=== PATIENT | male | born 1990 | race Two or more races ===

== ENCOUNTER 2019-04-04 00:28 | Emergency (ER) | payer OTHER ==
[~2019-04-04] VITALS: Ht 180.3 cm; Wt 117.9 kg
--- NOTE | 2019-04-04 00:39 | PHYS DOC ---
Adult General Chief Complaint Chief Complaint: LACERATION/AVULSION HPI HPI 29-year-old male presents to the emergency department after a fall. Patient states he was coming up couple steps in his house subsequently tripped his hand went through glass. He has lacerations appreciated to the posterior aspect of his hand. Patient states he has had a few beers. She denies any head injury, loss of consciousness, no blood thinning medications. Nothing he symptoms worse, nothing makes his symptoms better All other ROS negative unless documented in HPI Review of Systems Review of Systems See Above Current Medications Current Medications Current Medications Medications (Trade) Dose Ordered Sig/Jd Start Time Stop Time Status Last Admin Dose Admin Diphenhydramine HCl (Benadryl) 25 mg 1X ONCE 04/04/19 01:15 04/04/19 01:16 Cancel Lidocaine HCl (Lidocaine 1% 20ml Vial) 20 ml 1X ONCE 04/04/19 01:00 04/04/19 01:01 DC 04/04/19 01:00 20 ML Allergies Allergies Allergies Coded Allergies Type Severity Reaction Last Updated Verified No Known Drug Allergies 04/04/19 No Physical Exam Physical Exam See Above Constitutional: Well developed, well nourished, no acute distress, non-toxic appearance. [] Cardiovascular:Heart rate regular rhythm, no murmur [] Lungs & Thorax: Bilateral breath sounds clear to auscultation [] Abdomen: Bowel sounds normal, soft, no tenderness, no masses, no pulsatile masses. [] Skin: Warm, dry, 3 separate lacerations appreciated to the posterior aspect of right hand Extremities: No tenderness,no edema. [] Neurologic: Alert and oriented X 3, no focal deficits noted. [] Psychologic: Affect normal, judgement normal, mood normal. [] Current Patient Data Vital Signs Vital Signs Date Time Temp Pulse Resp B/P (MAP) Pulse Ox O2 Delivery O2 Flow Rate FiO2 04/04/19 00:32 97.8 91 16 128/82 (97) 99 Room Air 97.8 EKG EKG [] Radiology/Procedures Radiology/Procedures [] Course & Med Decision Making Course & Med Decision Making Pertinent Labs and Imaging studies reviewed. (See chart for details) []29-year-old male presents to the emergency department after a fall. Patient states he was coming up couple steps in his house subsequently tripped his hand went through glass. He has lacerations appreciated to the posterior aspect of his hand. Patient states he has had a few beers. She denies any head injury, loss of consciousness, no blood thinning medications. Nothing he symptoms worse, nothing makes his symptoms better Xray without acute findings of FB Boostrix provided Laceration Repair by me: Anesthesia: 1% lidocaine locally Location: right hand Tendon/Joint/Nerves: No injury Foreign body: None detected after copious irrigation and exploration Technique: Simple Interrupted Sutures Complexity: No subcutaneous sutures/mucosal repair/edge excision Post Closure Length: multiple laceration appreciated, 17 interrupted 4.0, ethilon sutures placed, 3 separate lacerations appreciated one over the right 5 th knuckle 2cm, one over the middle knuckle 3 cm Patient's bleeding was easily controlled in the department and there is no in dication of anemia. No evidence of compartment syndrome, neurologic injury, vascular injury, open joint, tendon laceration, or foreign body. The area over the knuckle may not heal well given the limited amount of tissue available to close the skin Dragon Disclaimer Dragon Disclaimer This electronic medical record was generated, in whole or in part, using a voice recognition dictation system. Departure Departure Impression: Primary Impression: Laceration of hand Disposition: 01 HOME, SELF-CARE Condition: STABLE Patient Instructions: Laceration Care, Adult, [id number], Sutured Wound Care, [id number] Additional Instructions: Recommend follow up with PCP 3 - 5 days Return to the ER with worsening symptoms, intractable pain, fever, altered mental status Tylenol/Motrin as needed for pain Suture removal in 10-14 days Splint placed upon discharge to middle finger to help reduce movement given the sutures are over the knuckle Problem Qualifiers Primary Impression: Laceration of hand Encounter type: initial encounter Foreign body presence: without foreign body Laterality: right Qualified Codes: S61.411A - Laceration without foreign body of right hand, initial encounter GENO PAK MD Apr 04, 2019 00:39
[2019-04-04] MEDS ORDERED: LIDOCAINE 1% Multi-Dose 20 ML VIAL. INJ ONE (01:00)
[2019-04-04] MEDS ORDERED: diphenhydrAMINE HCL 25 MG CAPSULE PO ONE (01:15)
[2019-04-04 02:07] VITALS: BP 98/60
--- NOTE | 2019-04-04 08:02 | RAD ---
Two-view right hand HISTORY: Laceration at the posterior hand, and went through glass. FINDINGS: Focal soft tissue swelling posterior to the distal metacarpals on the lateral view. No definite radiopaque soft tissue foreign body is identified. No evidence of acute fracture. Joint spaces intact without dislocation. IMPRESSION: Soft tissue swelling, particularly posterior to the distal metacarpals presumably the site of injury. No definite radiopaque foreign body but note that glass is not always apparent on x-rays. Depending on clinical concern, ultrasound could further evaluate for foreign body. Electronically signed by: Graham Deal MD (04/04/2019 7:58 AM) [facility]
== END 2019-04-04 02:50 | disposition home or self-care (01) ==
LOC: ER 00:28
DX: S61.411A Laceration without foreign body of right hand, initial encounter (principal); W01.0XXA Fall on same level from slipping, tripping and stumbling without subsequent striking against object, initial encounter; Y93.89 Activity, other specified; Y92.89 Other specified places as the place of occurrence of the external cause; Y99.8 Other external cause status
CPT/HCPCS: 12002; 73120; 99284-25

== ENCOUNTER → 2019-05-15 | Outpatient (CLI) | payer OTHER ==
--- NOTE | 2019-05-15 12:18 | KCIC ---
CHEST PA LATERAL History: Chest wall pain on the left opacities. Pain on inspiration. Comparison: None. Findings: The cardiomediastinal silhouette is normal. Pulmonary vasculature is normal. The lungs are clear other than minimal left basilar discoid atelectasis or linear scarring. No pleural effusion or pneumothorax is seen. There is no acute bone abnormality. IMPRESSION: No suspicious cardiopulmonary process. Electronically signed by: Walker Navarro MD (05/15/2019 12:15 PM) [id number]
== END | disposition home or self-care (01) ==
LOC: KCIC 09:53
PROVIDERS: ATTEND Nurse Practitioner Family
DX: R07.89 Other chest pain (principal)
CPT/HCPCS: 71046